=== PATIENT | female | born 1980 | race Caucasian/White ===

== ENCOUNTER 2022-12-10 17:52 | Emergency (ER) | payer OTHER ==
[~2022-12-10] VITALS: Ht 170.2 cm; Wt 113.4 kg
[2022-12-10 18:12] VITALS: BP_SYST 128; PULSE 88; RESP 16; TEMP 97.1; O2SAT 97
--- NOTE | 2022-12-10 18:16 | NUR ---
Patient triaged and placed in waiting room. C/O sorethroat x1 day. Also C/O numbness to yadira hands X 1 day. VSS and patient appears in no acute distress at this time. Accompanied by Self, awaiting available bed, and MD notified of need for MSE.
--- NOTE | 2022-12-10 19:52 | NUR ---
Patient to ER bed [facility] to gown for evaluation. Side rails up. Report given to JIGAR GIBSON.
--- NOTE | 2022-12-10 20:00 | NUR ---
pt bib self. c/o sore throat onset of one day. pt states son has been dx with strep throat and she believes she might have it as well. Pt states to have visited urgent care earlier today, pt states to have had abx and steriod shot. Pt has px of antibiotics. Pt afebrile. Pt states numbness on bilateral hands. Cap refill <3. No trauma noted on hands. Pt hx of anxiety and depression. Pt VSS. AAOX4. RR 15 even and unlabored. Pt denies N/V/D. Pt speaking full complete sentences. Pt in bed with side rails up.
--- NOTE | 2022-12-10 20:08 | NUR ---
ER at bedside examining patient.
[2022-12-10 20:23] VITALS: BP_SYST 136; PULSE 81; RESP 15; TEMP 98.8; O2SAT 97
--- NOTE | 2022-12-10 20:23 | NUR ---
Patient given written and verbal discharge instructions and verbalizes understanding. ER MD discussed with patient the results and treatment provided. Patient in stable condition. ID arm band removed. Patient educated on pain management and to follow up with PMD.\ Opportunity for questions provided and answered. Medication side effect fact sheet provided.
== END 2022-12-10 20:23 | disposition home or self-care (01) ==
LOC: SED 17:52
DX: J02.9 Acute pharyngitis, unspecified (principal); R20.2 Paresthesia of skin; Z88.6 Allergy status to analgesic agent; Z20.822 Contact with and (suspected) exposure to COVID-19
CPT/HCPCS: 99283; 87426; 36415; J7030